=== PATIENT | female | born 1995 | race African-American/Black ===

== ENCOUNTER 2021-02-25 12:44 | Emergency (ER) | payer MEDICAID ==
[2021-02-25] MEDS ORDERED: Lidocaine 1% with EPINEPHrine 1:100,000 20 ML MDV INFILT SCH (13:15)
--- NOTE | 2021-02-25 15:32 | EDM.PDOC ---
ED HPI GENERAL MEDICAL PROBLEM - General Chief Complaint: Skin Complaint Stated Complaint: CYST UNDER ARMPIT Time Seen by Provider: 02/25/21 12:55 Source of Information: Reports: Patient History Limitations: Reports: No Limitations - History of Present Illness INITIAL COMMENTS - FREE TEXT/NARRATIVE: Pt. presents to ER with complaints of growth in R axilla. Pt. states that this has been present and growing larger for about a week. She states that she has not been experiencing any fever or chills. No chest pain or shortness of breath. Pt. states that she has no history of MRSA or other bacterial colonization that she is aware of. Denies any history of other abscesses or cellulitis in the past. Onset: Today Onset Date: 02/25/21 Location: Reports: Upper Extremity, Right Right Axillary Pain Score (Numeric/FACES): 10 - Related Data Allergies Allergy/AdvReac Type Severity Reaction Status Date / Time No Known Allergies Allergy Verified 02/25/21 13:07 Home Meds: Home Meds . [No Known Home Meds] 02/25/21 [History] Past Medical History - Past Health History Medical/Surgical History: Denies Medical/Surgical History Social & Family History - Tobacco Use Tobacco Use Status *Q: Never Tobacco User - Recreational Drug Use Recreational Drug Use: Yes Recreational Drug Type: Reports: Marijuana/Hashish ED ROS GENERAL - Review of Systems Review Of Systems: Comprehensive ROS is negative, except as noted in HPI. ED EXAM, SKIN/RASH Exam: See Below Exam Limited By: No Limitations General Appearance: Alert, WD/WN, No Apparent Distress Skin: Warm, Dry, Other (approx. 3 cm in diameter abscess to R axilla with scant about of excoriation/drainage. Area is exquisitely tender to palpation.) ED SKIN PROCEDURES - I&D Skin Prep: Chlorhexidine (Hibiciens) Local Anesthesia: Lidocaine: 1% with EPI Local Anesthetic Volume: 5cc Area Incised With: 11 Blade Drainage: Purulent Probed to Break Up Loculations: Yes Packed With: 1/4 in. Iodoform Sterile Dressing: Adhesive Dressing Complications: No Progress/Comments: Area prepped and draped in sterile fashion. Area cleansed with chlorhexidine. A total of 5 ml of 1% lidocaine with epi was infiltrated into the abscess. A #11 blade was used incise the abscess. A large amount of purulent, foul smelling material freely flowed from the incision. Area was extremely tender. Incision was extended to approx. 1 cm and abscess was packed with 1/4 in iodoform packing material. Course - Vital Signs Last Recorded V/S: Last Vital Signs Temp 37.1 C 02/25/21 12:55 Pulse 88 02/25/21 12:55 Resp 18 02/25/21 12:55 BP 109/64 02/25/21 12:55 Pulse Ox 98 02/25/21 12:55 - Orders/Labs/Meds Orders: Active Orders 24 hr Category Date Time Status CULTURE BODY FLUID [RM] Stat Lab 02/25/21 13:28 Received Meds: Medications Discontinued Medications Generic Name Dose Route Start Last Admin Trade Name Rudy PRN Reason Stop Dose Admin Lidocaine/Epinephrine 20 ml 02/25/21 13:15 02/25/21 13:30 Lidocaine 1% With Epinephrine 1:100,000 20 Ml Mdv INFILT 20 ml ONETIME JESSICA Administration Departure - Departure Time of Disposition: 14:00 Disposition: Home, Self-Care 01 Clinical Impression: Abscess - Discharge Information Instructions: Acetaminophen; Hydrocodone tablets or capsules, Skin Abscess, Sulfamethoxazole; Trimethoprim, SMX-TMP tablets, Probiotics Referrals: Gladys Hurt MD [Primary Care Provider] - Forms: ED Department Discharge Additional Instructions: Home to rest. Off work today and tomorrow if needed due to illness. Bactrim DS 1 twice daily for 10 days Lortab 5/325mg 1 every 6 hours as needed for pain. Do not drive or operate machinery on this medication. Return to ER tomorrow for dressing change/repack of abscess. Follow-up in clinic in a week for recheck. I am concerned you may need to undergo surgical incision of this abscess, so it needs to be watched closely. Return to ER if you have fever that doesn't go away with tylenol, weakness, or lightheadedness. Sepsis Event Note (ED) - Focused Exam Vital Signs: Vital Signs Temp Pulse Resp BP Pulse Ox 02/25/21 12:55 37.1 C 88 18 109/64 98 - Problem List Review Problem List Initiated/Reviewed/Updated: Yes - My Orders Last 24 Hours: My Active Orders 02/25/21 13:28 CULTURE BODY FLUID [RM] Stat - Assessment/Plan Last 24 Hours: My Active Orders 02/25/21 13:28 CULTURE BODY FLUID [RM] Stat Plan: Home to rest. Off work today and tomorrow if needed due to illness. Bactrim DS 1 twice daily for 10 days Lortab 5/325mg 1 every 6 hours as needed for pain. Do not drive or operate machinery on this medication. Return to ER tomorrow for dressing change/repack of abscess. Follow-up in clinic in a week for recheck. I am concerned you may need to undergo surgical incision of this abscess, so it needs to be watched closely. Return to ER if you have fever that doesn't go away with tylenol, weakness, or lightheadedness.
== END 2021-02-25 14:00 | disposition home or self-care (01) ==
LOC: VM.ED 12:44
DX: L02.411 Cutaneous abscess of right axilla (principal)
CPT/HCPCS: 10060; 87070; 87077; 87186; 99283; 99283-25

== ENCOUNTER 2021-10-13 21:19 | Emergency (ER) | payer BC, MEDICAID ==
[2021-10-13] MEDS: Take Home: Sulfamethoxazole/Trimethoprim 800-160 MG Tab, 2 Tab Pack PO ONE (22:06)
== END 2021-10-13 22:10 | disposition home or self-care (01) ==
LOC: VM.ED 21:19
DX: N39.0 Urinary tract infection, site not specified (principal)
CPT/HCPCS: 81001; 81025; 87086; 99283; A9270-GY

== ENCOUNTER 2022-04-24 14:24 | Emergency (ER) | payer OTHER, BC | END 2022-04-24 15:33 | disposition home or self-care (01) | LOC: VM.ED 14:24 | DX: S13.4XXA Sprain of ligaments of cervical spine, initial encounter (principal); V43.52XA Car driver injured in collision with other type car in traffic accident, initial encounter; Y92.410 Unspecified street and highway as the place of occurrence of the external cause | CPT/HCPCS: 99283; 99284 ==